=== PATIENT | female | born 1970 | race Caucasian/White ===

== ENCOUNTER 2018-12-02 19:38 | Emergency (ER) | payer OTHER ==
--- NOTE | 2018-12-02 19:43 | PDOC ---
History of Present Illness - General Chief Complaint: Pain Stated Complaint: ABDOMINAL PAIN X 1 HOUR Time Seen by Provider: 12/02/18 19:43 Past History - Past Medical History Allergies/Adverse Reactions: Allergies Allergy/AdvReac Type Severity Reaction Status Date / Time No Known Allergies Allergy Verified 12/02/18 19:39 Home Medications: Ambulatory Orders Levothyroxine [Synthroid -] 88 mcg PO DAILY 12/02/18 NK [No Known Home Medication] 12/02/18 *Physical Exam - Vital Signs Last Vital Signs Temp Pulse Resp BP Pulse Ox 97.9 F 87 16 141/72 99 12/02/18 19:42 12/02/18 19:42 12/02/18 19:42 12/02/18 19:42 12/02/18 19:42 Medical Decision Making - Medical Decision Making 12/02/18 19:55 CBC, cmp, lipase, ua, hcg, Ordered morphine Re-eval at 815 for pain relief, CT AB? Consider ovarian torsion vs kidney stone for acute suprapubic pain. *DC/Admit/Observation/Transfer - Discharge Dispostion Condition at time of disposition: Stable
[2018-12-02 19:54] VITALS: BP 141/72; PULSE 87; TEMP 97.9; BMI 18.7
[2018-12-02] MEDS ORDERED: morphine CARPU-JECT 4 MG/1 ML DISP.SYRIN IVPUSH ONE (19:54)
[2018-12-02] MEDS ORDERED: morphine SULFATE 4 MG/ML VIAL ONE (20:02)
[2018-12-02] MEDS ORDERED: SODIUM CHLORIDE 0.9% 500 ML INFUS.BAG IV ONE (20:02)
--- NOTE | 2018-12-02 20:02 | PDOC ---
History of Present Illness - General Chief Complaint: Pain Stated Complaint: ABDOMINAL PAIN X 1 HOUR Time Seen by Provider: 12/02/18 19:43 History Source: Patient Exam Limitations: No Limitations - History of Present Illness Initial Comments: 12/02/18 20:06 Carolynn Sherwood is a 48yF with PMHx of hypothyroidism presenting with acute suprapubic pain. Pain started 1 hr ago sitting at restaurant waiting for dinner , located suprapubic region bilaterally, sharp/shooting. Worse with movement and laying down. Did not take anything for pain relief. Denies fevers, nausea/ vomiting, chest pain, SOB, urinary/bowel changes. Has regular periods, LMP few days ago, not sexually active in past 6mo, no hx of STI. 2 pregnancies, both , no complications 12/02/18 20:52 Past History - Past Medical History Allergies/Adverse Reactions: Allergies Allergy/AdvReac Type Severity Reaction Status Date / Time No Known Allergies Allergy Verified 12/02/18 19:39 Home Medications: Ambulatory Orders Levothyroxine [Synthroid -] 88 mcg PO DAILY 12/02/18 NK [No Known Home Medication] 12/02/18 COPD: No GI Disorders: No Disorders: No Thyroid Disease: Yes (HYPOTHYROIDISM) - Surgical History Abdominal Surgery: Yes (2 C-SECTIONS) - Reproductive History LMP Normal: Yes (few days ago) (#): 2 Para: 2 - Suicide/Smoking/Psychosocial Hx Smoking History: Never smoked Have you smoked in the past 12 months: No Information on smoking cessation initiated: No Hx Alcohol Use: Yes (OCCAS.) Review of Systems - Review of Systems Constitutional: No: Chills, Fever, Malaise, Weakness HEENTM: No: Eye Pain, Nose Pain, Nose Congestion, Nose Bleeding, Throat Pain Respiratory: No: Cough, Shortness of Breath, Stridor, Wheezing Cardiac (ROS): No: Chest Pain, Edema, Palpitations, Syncope ABD/GI: Yes: Other (suprapubic pain). No: Abdominal Distended, Constipated, Diarrhea, Nausea, Vomiting : No: Burning, Dysuria, Discharge, Flank Pain, Hematuria Musculoskeletal: No: Back Pain, Joint Swelling, Muscle Pain Integumentary: No: Bruising, Dryness, Erythema, Flushing, Pruritus, Rash Neurological: No: Headache, Numbness, Seizure, Tingling, Ataxia Psychiatric: No: Anxiety, Depression Endocrine: No: Excessive Sweating, Flushing, Intolerance to Cold, Intolerance to Heat *Physical Exam - Vital Signs Last Vital Signs Temp Pulse Resp BP Pulse Ox 97.9 F 87 16 141/72 99 12/02/18 19:42 12/02/18 19:42 12/02/18 19:42 12/02/18 19:42 12/02/18 19:42 - Physical Exam General Appearance: Yes: Nourished, Severe Distress (sitting up, guarding lower abdomen) HEENT: positive: EOMI, JULIO, Normal Voice. negative: Pale Conjunctivae, Nasal Congestion, Rhinorrhea, Lesions, Excessive drooling Respiratory/Chest: positive: Lungs Clear, Normal Breath Sounds. negative: Chest Tender, Respiratory Distress, Crackles, Rales, Rhonchi, Stridor, Wheezing Cardiovascular: positive: S1, S2, Tachycardia. negative: Regular Rhythm, Edema , Murmur Gastrointestinal/Abdominal: positive: Normal Bowel Sounds, Tender (bilateral suprapubic region), Flat, Guarding (suprapubic region), Rebound (suprapubic region), Other (no CVA tenderness). negative: Organomegaly, Distended, Mass Integumentary: positive: Normal Color. negative: Rash, Swelling Neurologic: positive: Fully Oriented, Alert, Normal Response, Responsive. negative: Confused, Disoriented ED Treatment Course - LABORATORY CBC & Chemistry Diagram: 12/02/18 20:00 12/02/18 20:00 Medical Decision Making - Medical Decision Making 12/02/18 19:59 CBC, CMP, lipase, UA, HCG fluids, morphine - didnt relieve pain given toradol, completely relieved pain CBC, CMP, UA normal, not , pending lipase Canceled CT AB due to pain relief Carolynn Sherwood is a 48yF with PMHx of hypothyroidism presenting with acute suprapubic pain. Likely musculoskeletal based on acute exacerbation presentation , normal labs, not . Complete pain relief with fluids, morphine, toradol. Ruled out kidney stone, UTI with no blood or infection seen on UA/ labs. Discharged home *DC/Admit/Observation/Transfer Diagnosis at time of Disposition: Suprapubic pain, acute - Discharge Dispostion Disposition: HOME Condition at time of disposition: Improved Decision to Admit order: No - Referrals - Patient Instructions Printed Discharge Instructions: DI for Abdominal Pain-Adult Additional Instructions: You were seen in the ED for abdominal pain. Your labs did not show anything concerning. You were given meds to relieve your pain. Follow up with your doctor concerning this ED visit. Please come to the ED if you have worsening pain, fever, or vomiting. - Post Discharge Activity Forms/Work/School Notes: Back to Work
[2018-12-02 20:13] LABS: BASO % 0.5 % (0-2.0); EOS % 1.8 % (0-4.5); HEMATOCRIT 34.5 % (32.4-45.2); HEMOGLOBIN 11.8 GM/dl (10.7-15.3); LYMPH % 37.2 % (8-40); MCH 30.6 pg (25.7-33.7); MCHC 34.1 g/dl (32.0-36.0); MEAN CELL VOLUME 89.7 fl (80-96); MEAN PLT VOLUME 9.8 fl (7.5-11.1); MONO % 3.1 % (3.8-10.2); NEUT % 57.4 % (42.8-82.8); PLATELET COUNT 139 K/MM3 (134-434); RBC 3.85 M/mm3 (3.60-5.2); RDW 11.9 % (11.6-15.6); WHITE BLOOD COUNT 5.3 K/mm3 (4.0-10.8)
[2018-12-02] MEDS ORDERED: KETOROLAC TROMETHAMINE 15 MG/ML VIAL ONE (20:20)
[2018-12-02] MEDS ORDERED: KETOROLAC TROMETHAMINE 30 MG/1 ML VIAL IVPUSH ONE ×2 (20:20→20:24)
[2018-12-02 20:35] LABS: ALBUMIN 4.3 g/dl (3.4-5.0); BILIRUBIN,TOTAL 0.7 mg/dl (0.2-1); CALCIUM 8.9 mg/dl (8.5-10); CREATININE 0.5 mg/dl (0.55-1.3); TOT PROT 7.1 g/dl (6.4-8.2)
--- NOTE | 2018-12-02 21:08 | PDOC ---
Documentation entered by Kayla Lockhart SCRIBE, acting as scribe for Santiago Pérez MD. Santiago Pérez MD: This documentation has been prepared by the Chantelle hanley Xhesika, SCRIBE, under my direction and personally reviewed by me in its entirety. I confirm that the documentation accurately reflects all work, treatment, procedures, and medical decision making performed by me. Attending Attestation - Resident Resident Name: Mele Montero - [facility] HPI: 12/02/18 20:26 The patient is a 48 year old female, with a significant PMH of hypothyroidism who presents to the emergency department with 1 hour of bilateral suprapubic pain. The patient states she was at a restaurant waiting for dinner at the sudden onset of her pain. The patient describes the pain as sharp, shooting pain that feels like a contraction/ muscle cramp worsened with physical movement and lying flat. The patient states her bilateral suprabupic pain was localized when it first began, however, it is now migrating upwards to her abdomen. The patient denies experiencing this pain before . The patient denies chest pain, shortness of breath, headache and dizziness. Denies fever, chills, nausea, vomiting, diarrhea and constipation. Denies dysuria, frequency, urgency and hematuria. Allergies: NKDA Past surgical history: 2 C-sections Social history: occasional alcohol use. No tobacco use. \ - Physicial Exam PE: 12/02/18 20:27 GENERAL: Awake, alert, and fully oriented, in no acute distress HEAD: No signs of trauma EYES: PERRLA, EOMI, sclera anicteric, conjunctiva clear ENT: Auricles normal inspection, hearing grossly normal, nares patent, oropharynx clear without exudates. Moist mucosa NECK: Normal ROM, supple, no lymphadenopathy, JVD, or masses LUNGS: Breath sounds equal, clear to auscultation bilaterally. No wheezes, and no crackles HEART: Regular rate and rhythm, normal S1 and S2, no murmurs, rubs or gallops ABDOMEN: (+) suprabupic tenderness. Soft, nontender, normoactive bowel sounds. No guarding, no rebound. No masses EXTREMITIES: Normal range of motion, no edema. No clubbing or cyanosis. No cords, erythema, or tenderness NEUROLOGICAL: Cranial nerves II through XII grossly intact. Normal speech, normal gait SKIN: Warm, Dry, normal turgor, no rashes or lesions noted. - Medical Decision Making 12/03/18 06:23 abd pain resolved during ED visit serial abd exams with resolution of abd tenderness at the time of discharge, tolerating PO, no abd complaints nsap
== END 2018-12-02 21:26 | disposition home or self-care (01) ==
LOC: FER 19:38
PROC: 3E0337Z Introduction of Electrolytic and Water Balance Substance into Peripheral Vein, Percutaneous Approach (ICD-10-PCS; principal; 2018-12-02)
PROC: 3E0333Z Introduction of Anti-inflammatory into Peripheral Vein, Percutaneous Approach (ICD-10-PCS; 2018-12-02)
PROC: 3E033NZ Introduction of Analgesics, Hypnotics, Sedatives into Peripheral Vein, Percutaneous Approach (ICD-10-PCS; 2018-12-02)
DX: R10.30 Lower abdominal pain, unspecified (principal); E03.9 Hypothyroidism, unspecified
CPT/HCPCS: 36415; 80053; 81003; 83690; 84703; 85025; 96374; 96375; 99281-25